=== PATIENT | male | born 1965 | race Caucasian/White ===

== ENCOUNTER 2019-12-13 00:11 | Outpatient (CLI) | payer MEDICARE, SELFPAY ==
[2019-12-13 18:06] LABS: SARS-CoV-2 RNA PCR Negative
== END 2019-12-13 00:12 | disposition home or self-care (01) ==
LOC: ANHCOVIDDT 00:11
PROVIDERS: PCP Family Medicine; Visit Provider Orthopaedic Surgery
DX: Z01.812 Encounter for preprocedural laboratory examination (principal); Z20.828 Contact with and (suspected) exposure to other viral communicable diseases
CPT/HCPCS: 87635; C9803; U0003

== ENCOUNTER 2019-12-13 08:39 | Outpatient (CLI) | payer MEDICARE, SELFPAY ==
--- NOTE | 2019-12-13 08:40 | ECG_ITS ---
Measurements Intervals [place] Rate: 55 P: 65 MT: 169 QRS: 53 QRSD: 89 T: 41 QT: 400 QTc: 386 Interpretive Statements SINUS BRADYCARDIA BASELINE ARTIFACT- I, II, III, AVR, AVL, AVF, V1-V6 BORDERLINE ECG Electronically Signed On 12-13-2019 9:20:11 CDT by Miguel Angel Omalley D.O.
== END 2019-12-13 08:40 | disposition home or self-care (01) ==
LOC: ANHSURGERY 08:40
PROVIDERS: PCP Family Medicine; Visit Provider Orthopaedic Surgery
DX: F17.210 Nicotine dependence, cigarettes, uncomplicated (principal); R94.31 Abnormal electrocardiogram [ECG] [EKG]
CPT/HCPCS: 93005

== ENCOUNTER 2019-12-15 05:35 | Day surgery (SDC) | payer MEDICARE, SELFPAY ==
[2019-12-15] VITALS (7 sets, daily range): BP systolic 110–139; BP diastolic 64–79; PULSE 43–58; RESP 8–18; TEMP 36.4–36.7; O2SAT 94–100
--- NOTE | 2019-12-15 07:09 | WPDHPUPDATE1 ---
History and Physical Update Update Date/Time: 12/15/19 07:09 History and Physical has been reviewed, including an updated exam of the patient. There are NO changes in the patient's condition. Risks, benefits, and alternatives have been discussed and questions answered. Patient agrees to proceed with procedure.
--- NOTE | 2019-12-15 08:22 | WPDANESEPPF ---
Anes - Initial Pre Proc Eval Procedure: Operation Date: 12/15/19 09:00 Proposed Procedures p Right Knee Arthroscopic Partial Medial Meniscectomy - Aldo Guerrero MD Date/Time: 12/15/19 08:22 Surgeon: Aldo Guerrero MD Pre Op Diagnosis: right knee medial meniscus tear Patient Data Age: 54 Gender: M Height: Weight: 97.52 kg Allergies Allergy/AdvReac Type Severity Reaction Status Date / Time cat dander Allergy Unknown Asthma Verified 12/15/19 08:21 Sulfa (Sulfonamide Allergy Unknown hives Verified 12/15/19 08:21 Antibiotics) Home Medications Medication Instructions Recorded Confirmed Type albuterol sulfate 90 mcg/actuation 2 puff INHALATION DIRECTED PRN 05/23/19 12/13/19 History aerosol inhaler gm alprazolam 1 mg tablet 1 mg PO TID tablet 05/23/19 12/13/19 History bupropion HCl 300 mg 24 hr tablet, 300 mg PO QAM 05/23/19 12/13/19 History extended release ergocalciferol (vitamin D2) 1,250 50,000 unit PO WEEKLY 05/23/19 12/13/19 History mcg (50,000 unit) capsule fluticasone propionate 50 2 spray NASAL DAILY PRN 05/23/19 12/13/19 History mcg/actuation nasal spray,suspension hydrocodone 10 mg-acetaminophen 1 tablet PO Q6H PRN 05/23/19 12/13/19 History 325 mg tablet tizanidine 2 mg capsule 2 mg PO TID PRN 05/23/19 12/13/19 History cod liver oil 1 cap PO DAILY 08/31/19 12/13/19 History Prevagen 1 cap PO DAILY 09/20/19 12/13/19 History melatonin 10 mg PO HS 09/20/19 12/13/19 History Patient hx anesthesia problems: none Family hx anesthesia problems: none PMFSH Past Medical History Medical History Chronic bronchitis with COPD (chronic obstructive pulmonary disease) Chronic obstructive pulmonary disease GERD (gastroesophageal reflux disease) Hypercholesterolemia Hyperglyceridemia Hypogonadism Internal carotid artery stenosis Lumbar spondylolysis Medial meniscus tear Non-alcoholic fatty liver disease Tendinosis of right shoulder Vitamin D deficiency Surgical History Surgical History History of appendectomy History of arthroscopy of knee History of facial surgery History of knee replacement History of lumbar surgery Hx of fusion of cervical spine Status post arthroscopy of hip Family History Family History Father Hypertension Family history of cardiovascular disease Family history of dementia Family history of headache disorder Family history of Alzheimer's disease Mother Hypertension Family history of cardiovascular disease Family history of headache disorder Family history of osteoporosis Grandparent Hypertension Family history of cardiovascular disease Cerebrovascular accident Other Family history of arthritis Social History Social History Smoking status: Former smoker Alcohol intake: current Gender identity (if verbalized by the patient): Male Anes - Eval Final PreProcedure Day of Procedure 12/15/19 08:22 Patient weight: obese Heart: regular rate and rhythm Lungs: decreased breath sounds Airway: Mallampati scale class II Neurological: alert and oriented Last oral intake: >/= 8 hours ASA classification: III Emergent: no Anesthetic plan: proceed Anesthesia type and monitoring: general LMA and standard monitoring Informed Consent: The patient's anesthetic plan and its attendant risks and benefits were discussed with the patient/family/POA. Questions were solicited and answers provided to the satisfaction of the patient/family/POA.
[2019-12-15] MEDS: LACTATED RINGERS 1,000 ML 30 ML IV CONT ×2 (08:25→09:58)
[2019-12-15] MEDS: ceFAZolin 2 GM/D5W 50 ML 2 GM/50 ML BAG IVPB (08:46)
[2019-12-15] MEDS: BUPIVACAINE/EPINEPHRINE 0.5% 10 ML VIAL 20 ML INFILTRATE (09:04)
--- NOTE | 2019-12-15 16:57 | PM.PROC ---
Procedure Note - Detailed Date of procedure: 12/15/19 Pre-op diagnosis: right knee medial meniscus tear Post-op diagnosis: same Procedure performed: Arthroscopic partial medial meniscectomy. Description of procedure: A large posterior horn meniscal fragment identified in the intercondylar notch. This was reduced and debrided. Minimal medial chondromalacia. Grade 2 at the patellofemoral joint. The lateral compartment was benign. Anesthesia: GETA Surgeon: Aldo Guerrero MD Estimated blood loss (mL): 5 Complications: None Condition: stable Findings: Procedure Details: The patient was identified and the surgical site confirmed and signed in the preoperative holding area. Antibiotics were started per protocol. She was brought to the operative room and transferred to the OR table. A general anesthetic was administered. Supine position with the operative lower extremity position in the leg garcia after placement of a well padded tourniquet. The leg support was lowered and the contralateral limb was supported with a soft bolster. The knee was prepped and draped in the usual sterile fashion. A time-out was performed. The portal sites were marked and infiltrated with 0.5% Marcaine 20 mL. The limb was exsanguinated and the tourniquet inflated to 300 mL Hg. Standard inferolateral and inferomedial portals were established. Inflow was obtained with the saline pump. The camera was introduced. Diagnostic inspection of the joint was accomplished. The meniscus was debrided with the arthroscopic shaver and punches until stable. The arthroscopic instruments were removed. The tourniquet released and wounds closed with subcutaneous 3-0 Monocryl absorbable suture. Steri strips and a sterile dressing were applied. A light elastic wrap was placed. The patient was extubated and brought to the recovery room in stable condition.
== END 2019-12-15 11:26 | disposition home or self-care (01) ==
PROVIDERS: PCP Family Medicine; Visit Provider Orthopaedic Surgery
PROC: (CPT 29870; principal; 2019-12-15 09:00)
DX: S83.241A Other tear of medial meniscus, current injury, right knee, initial encounter (principal); W19.XXXA Unspecified fall, initial encounter; M94.261 Chondromalacia, right knee; J44.9 Chronic obstructive pulmonary disease, unspecified; E78.00 Pure hypercholesterolemia, unspecified; K21.9 Gastro-esophageal reflux disease without esophagitis; K76.0 Fatty (change of) liver, not elsewhere classified; E55.9 Vitamin D deficiency, unspecified; E66.9 Obesity, unspecified; Z68.30 Body mass index [BMI] 30.0-30.9, adult; Z87.891 Personal history of nicotine dependence
CPT/HCPCS: 29881; 87635; 93005; A9270; C9803; J0690; J1100; J2250; J2405; J2704; J3010; J7120; U0003

== ENCOUNTER 2020-01-06 00:23 | Outpatient (CLI) | payer MEDICARE, SELFPAY ==
[2020-01-06 16:19] LABS: SARS-CoV-2 RNA PCR Negative
== END 2020-01-06 00:24 | disposition home or self-care (01) ==
LOC: ANHCOVIDDT 00:23
PROVIDERS: Anesthesiology; PCP Family Medicine; Visit Provider Orthopaedic Surgery
DX: Z01.818 Encounter for other preprocedural examination (principal); Z11.59 Encounter for screening for other viral diseases
CPT/HCPCS: 87635; C9803; U0003

== ENCOUNTER 2020-01-09 00:03 | Day surgery (SDC) | payer MEDICARE, SELFPAY ==
[2019-09-20 14:33] VITALS: BMI 27.0
[2019-12-27 10:26] VITALS: BMI 28.3
[2020-01-09] VITALS (8 sets, daily range): BP systolic 126–158; BP diastolic 76–88; PULSE 53–59; RESP 14–20; TEMP 36.1–37.2; O2SAT 94–100
--- NOTE | 2020-01-09 07:08 | WPDHPUPDATE1 ---
History and Physical Update Update Date/Time: 01/09/20 07:08 History and Physical has been reviewed, including an updated exam of the patient. There are NO changes in the patient's condition. Risks, benefits, and alternatives have been discussed and questions answered. Patient agrees to proceed with procedure.
[2020-01-09] MEDS: LACTATED RINGERS 1,000 ML 30 ML IV CONT ×2 (11:30→15:53)
--- NOTE | 2020-01-09 12:56 | WPDANESEPPF ---
Anes - Initial Pre Proc Eval Procedure: Operation Date: 01/09/20 13:00 Proposed Procedures p Right Shoulder Arthroscopic Subacromial Decompression, Possible Rotator Cuff Repair With Regeneten Collagen Implant, Proceed As Indicated - Aldo Guerrero MD Date/Time: 01/09/20 12:56 Surgeon: Aldo Guerrero MD Pre Op Diagnosis: Tendonitis Right Shoulder Patient Data Age: 54 Gender: M Height: 1.85 m Weight: 95.7 kg Last Vital Signs Temp 37.2 C 01/09/20 11:48 Pulse 59 L 01/09/20 11:48 Resp 20 01/09/20 11:48 BP 126/76 01/09/20 11:48 Pulse Ox 98 01/09/20 11:48 Allergies Allergy/AdvReac Type Severity Reaction Status Date / Time cat dander Allergy Unknown Asthma Verified 01/09/20 12:38 Sulfa (Sulfonamide Allergy Unknown hives Verified 01/09/20 12:38 Antibiotics) Home Medications Medication Instructions Recorded Confirmed Type albuterol sulfate 90 mcg/actuation 2 puff INHALATION DIRECTED PRN 05/23/19 01/09/20 History aerosol inhaler gm alprazolam 1 mg tablet 1 mg PO TID tablet 05/23/19 01/09/20 History bupropion HCl 300 mg 24 hr tablet, 300 mg PO QAM 05/23/19 01/09/20 History extended release ergocalciferol (vitamin D2) 1,250 50,000 unit PO WEEKLY 05/23/19 01/09/20 History mcg (50,000 unit) capsule fluticasone propionate 50 2 spray NASAL DAILY PRN 05/23/19 01/09/20 History mcg/actuation nasal spray,suspension hydrocodone 10 mg-acetaminophen 1 tablet PO Q6H PRN 05/23/19 01/09/20 History 325 mg tablet tizanidine 2 mg capsule 2 mg PO TID PRN 05/23/19 01/09/20 History cod liver oil 1 cap PO DAILY 08/31/19 01/09/20 History Prevagen 1 cap PO DAILY 09/20/19 01/09/20 History melatonin 10 mg PO HS 09/20/19 01/09/20 History Patient hx anesthesia problems: none Family hx anesthesia problems: none PMFSH Past Medical History Medical History (Updated 01/09/20 @ 12:57 by Kp Pennington DO) Chronic bronchitis with COPD (chronic obstructive pulmonary disease) Chronic obstructive pulmonary disease Chronic, continuous use of opioids norco 10 GERD (gastroesophageal reflux disease) Hypercholesterolemia Hyperglyceridemia Hypogonadism Internal carotid artery stenosis Lumbar spondylolysis Medial meniscus tear Non-alcoholic fatty liver disease Partial tear of right rotator cuff Presence of intrathecal pump dilaudid/clonidine/bupivacaine Tendinosis of right shoulder Vitamin D deficiency Surgical History Surgical History History of appendectomy History of arthroscopy of knee History of facial surgery History of knee replacement History of lumbar surgery Hx of fusion of cervical spine Status post arthroscopy of hip Social History Social History Smoking status: Former smoker Alcohol intake: current Gender identity (if verbalized by the patient): Male Anes - Eval Final PreProcedure Day of Procedure 01/09/20 12:56 Patient weight: overweight Heart: regular rate and rhythm Lungs: clear to auscultation and normal air movement Airway: Mallampati scale class II Neurological: alert and oriented Last oral intake: >/= 8 hours ASA classification: III Emergent: no Anesthetic plan: proceed Anesthesia type and monitoring: general ETT and standard monitoring Informed Consent: The patient's anesthetic plan and its attendant risks and benefits were discussed with the patient/family/POA. Questions were solicited and answers provided to the satisfaction of the patient/family/POA.
--- NOTE | 2020-01-09 12:58 | WPDANESPNB ---
Anes - Peripheral Nerve Block Date/Time: 01/09/20 12:58 I have discussed with the patient/family/POA the placement of a peripheral nerve block for post-operative pain management, including associated risks, benefits, complications, and side effects. Alternative methods of post-operative analgesia were detailed. Questions were solicited and answers provided to the satisfaction of the patient/family/POA. Time-Out: A pre-procedural Time-Out was completed immediately before starting the procedure and confirmed: Patient Identification, Site, Procedure, Patient Position and the Availability of Requisite Equipment. Clinical Indications: Acute post-operative pain management requested by the operative surgeon. Nerve Block Insertion Note Anes-nerve block: interscalene right Patient position: supine Skin prep: chlorhexidine Needle: 22 gauge, stimulating, insulated echogenic needle. Needle length: 50 mm Technique: ultrasound Injectate: bupivacaine 0.5% with epi 5 mcg/ml (30cc) Observations: tolerated well Complications: none Procedure start time:: 1317 Procedure end time:: 1320
[2020-01-09] MEDS: ceFAZolin 2 GM/D5W 50 ML 2 GM/50 ML BAG IVPB (13:38)
--- NOTE | 2020-01-10 11:32 | P.OP_ITS ---
Procedure Note - Detailed Date of procedure: 01/09/20 Pre-op diagnosis: Tendonitis Right Shoulder Post-op diagnosis: other (1. High-grade partial bursal side rotator cuff tear. 2. Subacromial impingement. 3. Posterior labral tear. ) Procedure performed: 1. Arthrosocopic rotator cuff repair. 2. Arthroscopic subacromial decompression. 3. Arthroscopic posterior labral debridement. Description of procedure: The posterior labrum had a significant degenerative type tear in the posterior inferior corner. This was debrided with the arthroscopic shaver and the radiofrequency probe. The cuff appeared normal on the articular side. The articular cartilage was otherwise normal. The bursal cuff had high-grade tear. Initially looked quite small and without retraction. There was delamination occurring. There was significant exposed footprint on the bursal side. The articular tissue remained intact and close to 50% thickness. A 2 tunnel repair was performed with an X-box technique. Anesthesia: [facility] Surgeon: Aldo Guerrero MD Estimated blood loss (mL): 20 Complications: None Disposition: PACU Findings: Preoperative antibiotics were given. An interscalene block was administered in the preoperative area. The patient was bought brought to the operating room. A general anesthetic was administered. The patient was carefully positioned in the beach chair position. The head and neck were carefully positioned. The non operative extremity was also carefully positioned. The shoulder was prepped and draped in the usual sterile fashion. Examination was performed. Standard posterior and anterior arthroscopic portals were established. Inflow achieved with the arthroscopic pump using saline and epinephrine. The glenohumeral joint was carefully inspected. The articular cartilage was normal. There was a significant degenerative tear of the posterior inferior labrum. There was fairly small. There was some instability of the labrum at the 7 o'clock position. This was treated with debridement. The camera and they shaver were switched and a better angle was obtained posteriorly. The radiofrequency probe was also used to seal and smoothed the unstable edge. The tear appeared quite anatomic and benign at the conclusion of the debridement. There was a mild synovitis and hyperemia. There did not appear to be any capsule contracture. The articular side of the rotator cuff appeared entirely normal. Biceps and superior labrum were also normal. Attention was turned to the subacromial space. The bursa was moderately thickened. There was also a thick band going anteriorly at the anterolateral acromion. This was felt to be consistent with the impingement. Bursal tissue at the supraspinatus initially looked fairly modestly frayed but after gentle probing it was clear that this was a large bursal side tear. No retraction with good tendon tissue. A modest acromioplasty was performed. The articular 50% of cuff remained healthy and viable. It was elected to repair the cuff with a 2 tunnel technique using the X box configuration. This compressed the lateral edge of the rotator cuff nicely onto the footprin. The tear configuration was carefully assessed. At this point, 2 tunnels were created at the rotator cuff. One anterior and 1 posterior. The ArthroTunneler technique was utilized. Three sutures were passed through each tunnel. All sutures were then passed through the cuff tissue. The sutures were tied arthroscopically. The arthroscopic instruments were removed. The wounds were closed with 3-0 Monocryl subcuticular suture and steri strips. There were no complications. A sling was applied and the patient brought to the recovery room.
== END 2020-01-09 18:10 | disposition home or self-care (01) ==
PROVIDERS: PCP Family Medicine; Visit Provider Orthopaedic Surgery
PROC: (CPT 29805; principal; 2020-01-09 13:00)
DX: M75.101 Unspecified rotator cuff tear or rupture of right shoulder, not specified as traumatic (principal); M75.81 Other shoulder lesions, right shoulder; M75.41 Impingement syndrome of right shoulder; G89.18 Other acute postprocedural pain; J44.9 Chronic obstructive pulmonary disease, unspecified; E78.00 Pure hypercholesterolemia, unspecified; E78.1 Pure hyperglyceridemia; M47.816 Spondylosis without myelopathy or radiculopathy, lumbar region; E55.9 Vitamin D deficiency, unspecified; Z79.891 Long term (current) use of opiate analgesic; Z87.891 Personal history of nicotine dependence
CPT/HCPCS: 29827; 29826; 64415; 87635; A4565; C9803; J0690; J1100; J2250; J2405; J2704; J2710; J3010; J7120; U0003

== ENCOUNTER 2020-09-24 08:41 | Outpatient (CLI) | payer MEDICARE, SELFPAY | END 2020-09-24 08:42 | disposition home or self-care (01) | LOC: ANHCOVIDVC 08:41 | PROVIDERS: PCP Family Medicine | DX: Z23 Encounter for immunization (principal) | CPT/HCPCS: 0001A; 91300 ==

== ENCOUNTER 2020-10-15 10:16 | Outpatient (CLI) | payer MEDICARE, SELFPAY | END 2020-10-15 10:17 | disposition home or self-care (01) | LOC: ANHCOVIDVC 10:17 | PROVIDERS: PCP Family Medicine | DX: Z23 Encounter for immunization (principal) | CPT/HCPCS: 0002A; 91300 ==

== ENCOUNTER 2021-04-07 10:40 | Emergency (ER) | payer MEDICARE, SELFPAY ==
[2021-04-07 10:50] VITALS: TEMP 36.7
[2021-04-07 11:00] VITALS: O2SAT 98
--- NOTE | 2021-04-07 11:08 | ED.SOB ---
HPI - SOB/Dyspnea General Chief Complaint: Back Pain/Injury Stated Complaint: Shortness of Breathe Time Seen by Provider: 04/07/21 11:08 Source: patient and RN notes reviewed Mode of arrival: ambulatory Limitations: no limitations History of Present Illness HPI Narrative: 55-year-old male presents with concern for shortness of breath, left-sided chest wall pain without injury. Reports he did work in the yard excessively over the weekend. Reports pain started yesterday. He reports a feeling of not being able to take a full deep breath on the left side. He denies coughing. Denies worsening pain with range of motion of the left arm, reports worsening pain with lying on the left side. He denies upper respiratory symptoms such as nasal congestion, rhinorrhea, sore throat, headache. Reports a history of rhabdomyolysis, back pain, back surgery, has a implanted pain pump. Uses a cane for mobility due to back pain and surgery. Patient was vaccinated for Covid. MD elicited complaint: shortness of breath Related Data Home Medications Medication Instructions Recorded Confirmed ergocalciferol (vitamin D2) 1,250 50,000 unit PO WEEKLY 05/23/19 03/06/21 mcg (50,000 unit) capsule fluticasone propionate 50 2 spray NASAL DAILY PRN 05/23/19 03/06/21 mcg/actuation nasal spray,suspension cod liver oil 1 cap PO DAILY 08/31/19 03/06/21 Prevagen 1 cap PO DAILY 09/20/19 03/06/21 melatonin 10 mg PO HS 09/20/19 03/06/21 albuterol sulfate 90 mcg/actuation 1 puff INHALATION Q4H PRN 03/06/21 03/06/21 aerosol inhaler aspirin 81 mg tablet,delayed 81 mg PO DAILY 03/06/21 03/06/21 release fluticasone 250 mcg-salmeterol 50 1 inh INHALATION BID PRN 03/06/21 03/06/21 mcg/dose blistr powdr for inhalation ginkgo biloba 120 mg tablet 120 mg PO DAILY 03/06/21 03/06/21 milk thistle 500 mg capsule 500 mg PO DAILY 03/06/21 03/06/21 omeprazole 20 mg tablet,delayed 20 mg PO DAILY 03/06/21 03/06/21 release vit C 50 mg-E 15 unit-zinc cit 4.5 2 tablet PO DAILY 03/06/21 03/06/21 mg-lutein 2.5 mg-zeaxan chew tablet Allergies Allergy/AdvReac Type Severity Reaction Status Date / Time cat dander Allergy Unknown Asthma Verified 04/07/21 11:26 Sulfa (Sulfonamide Allergy Unknown hives Verified 04/07/21 11:26 Antibiotics) Review of Systems Review of Systems: CONSTITUTIONAL: Denies malaise, chills, sweats, or fever. EYES: Denies visual changes, redness, or discharge. ENT: Denies rhinorrhea, congestion, sinus pain, otalgia or sore throat. CARDIOVASCULAR: Denies chest pain, palpitations, or edema. RESPIRATORY: Denies cough. Reports dyspnea, left chest wall pain. GASTROINTESTINAL: Denies abdominal pain, nausea, vomiting, diarrhea, bloody, or mucous stools. GENITOURINARY: Denies dysuria or hematuria. SKIN: Denies rash or itching, redness, warmth, swelling. MUSCULOSKELETAL: Reports left upper back pain, worsening when lying on the left side NEUROLOGIC: Denies numbness, weakness, or headache. All systems reviewed & are unremarkable except as noted in HPI and below PMFSH Past Medical History Medical History (Updated 04/07/21 @ 11:34 by Antonia Patel NP) Chronic bronchitis with COPD (chronic obstructive pulmonary disease) Chronic obstructive pulmonary disease Chronic pain Chronic, continuous use of opioids norco Family hx colonic polyps GERD (gastroesophageal reflux disease) Hypercholesterolemia Hyperglyceridemia Hypogonadism Internal carotid artery stenosis Lumbar spondylolysis Medial meniscus tear Non-alcoholic fatty liver disease Partial tear of right rotator cuff Presence of intrathecal pump dilaudid/clonidine/bupivacaine Tendinosis of right shoulder Vitamin D deficiency Surgical History Surgical History History of appendectomy History of arthroscopy of knee History of facial surgery History of knee replacement History of lumbar surgery Hx of fusion of cervical spi
[2021-04-07 11:15] VITALS: BP 147/86; PULSE 81; RESP 18
== END 2021-04-07 11:28 | disposition short-term general hospital (02) ==
PROVIDERS: Emergency Provider Nurse Practitioner; PCP Family Medicine
DX: R06.02 Shortness of breath (principal); Z79.82 Long term (current) use of aspirin
CPT/HCPCS: 99212; G0463

== ENCOUNTER 2022-08-13 01:39 | Day surgery (SDC) | payer MEDICARE, SELFPAY ==
[2022-07-31 14:09] VITALS: BMI 26.7
[2022-08-13 10:13] VITALS: BP 127/64; PULSE 53; RESP 17; TEMP 36.1; O2SAT 100; BMI 27.0
--- NOTE | 2022-08-13 10:18 | PM.HPGS ---
History of Present Illness History of Present Illness Consent: Risks, benefits, and alternatives have been discussed and questions answered. Patient agrees to proceed with procedure. Chief complaint: family history of colon polyps Narrative: Brennon Cohen is a 56 year old male Presents for screening colonoscopy. Patient's father has had colon polyps. Patient's previous colonoscopy 2014 was unremarkable. Patient reports that his current weight appetite and bowel movements are normal. He denies abdominal pain. He has had no bleeding. Review of Systems Review of Systems: Review of systems noncontributory. [facility] Past Medical History Medical History Chronic bronchitis with COPD (chronic obstructive pulmonary disease) Chronic obstructive pulmonary disease Chronic pain Chronic, continuous use of opioids norco Family hx colonic polyps GERD (gastroesophageal reflux disease) History of pneumothorax Hypercholesterolemia Hyperglyceridemia Hypogonadism Internal carotid artery stenosis Lumbar spondylolysis Medial meniscus tear Non-alcoholic fatty liver disease Partial tear of right rotator cuff Presence of intrathecal pump dilaudid/clonidine/bupivacaine Tendinosis of right shoulder Vitamin D deficiency Surgical History Surgical History History of appendectomy History of arthroscopy of knee History of facial surgery History of knee replacement History of lumbar surgery Hx of fusion of cervical spine Status post arthroscopy of hip Family History Family History Father Hypertension Family history of cardiovascular disease Family history of dementia Family history of headache disorder Family history of Alzheimer's disease Mother Hypertension Family history of cardiovascular disease Family history of headache disorder Family history of osteoporosis Grandparent Hypertension Family history of cardiovascular disease Cerebrovascular accident Other Family history of arthritis Social History Social History (Updated 03/04/22 @ 11:34 by SILVIA Forte) Smoking packs per day: 1 Smoking cigarettes per day: 20.0 Years smoked: 22 Smoking pack-years: 22.00 Smoking status: Former smoker Alcohol intake: current Alcohol use details: socially Substance use: never Substance use type: does not use Living arrangements: alone Gender identity (if verbalized by the patient): Male Spiritual care concerns: No Meds Home Medications and Allergies Home Medications Medication Instructions Recorded Confirmed Type ergocalciferol (vitamin D2) 1,250 50,000 unit PO WEEKLY 05/23/19 08/13/22 History mcg (50,000 unit) capsule (Vitamin D2) albuterol sulfate 90 mcg/actuation 1 puff inhalation Q4H PRN Wheezing 03/06/21 08/13/22 History aerosol inhaler (ProAir HFA) ginkgo biloba 120 mg tablet 120 mg PO DAILY 03/06/21 08/13/22 History milk thistle 500 mg capsule 500 mg PO DAILY 03/06/21 08/13/22 History omeprazole 20 mg tablet,delayed 20 mg PO DAILY 03/06/21 08/13/22 History release hydromorphone (PF) 2 mg/mL 2 mg subcut Q6H PRN Back Pain 04/07/21 08/13/22 History injection solution atorvastatin 10 mg tablet 10 mg PO QHS #90 tabs 11/06/21 08/13/22 Rx fluticasone fur. 100 mcg-umeclid 1 inh inhalation DAILY 11/06/21 08/13/22 History 62.5 mcg-vilant 25 mcg inhalat.powder (Trelegy Ellipta) bupropion HCl 300 mg 24 hr tablet, 300 mg PO QAM #90 tabs 01/29/22 08/13/22 Rx extended release (Wellbutrin XL) alprazolam 1 mg tablet (Xanax) 1 mg PO TID #90 tabs 02/26/22 08/13/22 Rx hydrocodone 10 mg-acetaminophen 1 tablet PO Q8H PRN pain #90 tabs 06/01/22 08/13/22 Rx 325 mg tablet lisinopril 20 mg tablet 20 mg PO DAILY #90 tabs 07/03/22 08/13/22 Rx tizanidine 4 mg tablet See Rx Instructions .Rou
[2022-08-13] MEDS: LACTATED RINGERS 1,000 ML 150 ML IV CONT (10:24)
--- NOTE | 2022-08-13 10:36 | WPDANESEPPF ---
Anes - Initial Pre Proc Eval Procedure: Operation Date: 08/13/22 11:00 Proposed Procedures p Colonoscopy - Yasir Stein MD Date/Time: 08/13/22 10:36 Surgeon: Yasir Stein MD Pre Op Diagnosis: family history of colon polyps Patient Data Age: 56 Gender: M Height: 1.85 m Weight: 92.9 kg Last Vital Signs Temp 97 F L 08/13/22 10:13 Pulse 53 L 08/13/22 10:13 Resp 17 08/13/22 10:13 BP 127/64 08/13/22 10:13 Pulse Ox 100 08/13/22 10:13 O2 Del Method Room Air 08/13/22 10:13 Allergies Allergy/AdvReac Type Severity Reaction Status Date / Time cat dander Allergy Unknown Asthma Verified 08/13/22 10:11 Sulfa (Sulfonamide Allergy Unknown hives Verified 08/13/22 10:11 Antibiotics) Home Medications Medication Instructions Recorded Confirmed Type ergocalciferol (vitamin D2) 1,250 50,000 unit PO WEEKLY 05/23/19 08/13/22 History mcg (50,000 unit) capsule (Vitamin D2) albuterol sulfate 90 mcg/actuation 1 puff inhalation Q4H PRN Wheezing 03/06/21 08/13/22 History aerosol inhaler (ProAir HFA) ginkgo biloba 120 mg tablet 120 mg PO DAILY 03/06/21 08/13/22 History milk thistle 500 mg capsule 500 mg PO DAILY 03/06/21 08/13/22 History omeprazole 20 mg tablet,delayed 20 mg PO DAILY 03/06/21 08/13/22 History release hydromorphone (PF) 2 mg/mL 2 mg subcut Q6H PRN Back Pain 04/07/21 08/13/22 History injection solution atorvastatin 10 mg tablet 10 mg PO QHS #90 tabs 11/06/21 08/13/22 Rx fluticasone fur. 100 mcg-umeclid 1 inh inhalation DAILY 11/06/21 08/13/22 History 62.5 mcg-vilant 25 mcg inhalat.powder (Trelegy Ellipta) bupropion HCl 300 mg 24 hr tablet, 300 mg PO QAM #90 tabs 01/29/22 08/13/22 Rx extended release (Wellbutrin XL) alprazolam 1 mg tablet (Xanax) 1 mg PO TID #90 tabs 02/26/22 08/13/22 Rx hydrocodone 10 mg-acetaminophen 1 tablet PO Q8H PRN pain #90 tabs 06/01/22 08/13/22 Rx 325 mg tablet lisinopril 20 mg tablet 20 mg PO DAILY #90 tabs 07/03/22 08/13/22 Rx tizanidine 4 mg tablet See Rx Instructions .Route 07/21/22 08/13/22 Rx .COMPLEX #90 tabs ciprofloxacin HCl 250 mg tablet 250 mg PO Q12H #14 tabs 07/29/22 08/13/22 Rx iron 65 mg PO DAILY 07/31/22 08/13/22 History Patient hx anesthesia problems: none Family hx anesthesia problems: none Results Review: All pre-operative results and documents have been reviewed as part of the pre-operative evaluation. FOR[facility]LY [facility] Past Medical History Medical History Chronic bronchitis with COPD (chronic obstructive pulmonary disease) Chronic obstructive pulmonary disease Chronic pain Chronic, continuous use of opioids norco 10/325 Family hx colonic polyps GERD (gastroesophageal reflux disease) History of pneumothorax Hypercholesterolemia Hyperglyceridemia Hypogonadism Internal carotid artery stenosis Lumbar spondylolysis Medial meniscus tear Non-alcoholic fatty liver disease Partial tear of right rotator cuff Presence of intrathecal pump dilaudid/clonidine/bupivacaine Tendinosis of right shoulder Vitamin D deficiency Surgical History Surgical History History of appendectomy History of arthroscopy of knee History of facial surgery History of knee replacement History of lumbar surgery Hx of fusion of cervical spine Status post arthroscopy of hip Family History Family History Father Hypertension Family history of cardiovascular disease Family history of dementia Family history of headache disorder Family history of Alzheimer's disease Mother Hypertension Family history of cardiovascular disease Family history of headache disorder Family history of osteoporosis Grandparent Hypertension Family history of cardiovascular disease Cerebrovascular accident Other Family history of arthritis Social History Social Hi
[2022-08-13 11:03] VITALS: BP 105/61; PULSE 50; RESP 18; O2SAT 100
[2022-08-13 11:13] VITALS: BP 122/72; PULSE 50; RESP 14; O2SAT 100
[2022-08-13 11:23] VITALS: BP 124/70; PULSE 50; RESP 16; O2SAT 100
== END 2022-08-13 11:28 | disposition home or self-care (01) ==
PROVIDERS: PCP Family Medicine; Visit Provider Internal Medicine Gastroenterology
PROC: 0DJD8ZZ Inspection of Lower Intestinal Tract, Via Natural or Artificial Opening Endoscopic (ICD-10-PCS; CPT 45378; principal; 2022-08-13 11:00)
DX: Z12.11 Encounter for screening for malignant neoplasm of colon (principal); K64.8 Other hemorrhoids; Z86.010 Personal history of colon polyps; Z83.71 Family history of colonic polyps; J44.9 Chronic obstructive pulmonary disease, unspecified; K75.81 Nonalcoholic steatohepatitis (NASH); K21.9 Gastro-esophageal reflux disease without esophagitis; G89.29 Other chronic pain; E78.00 Pure hypercholesterolemia, unspecified; E55.9 Vitamin D deficiency, unspecified; Z79.51 Long term (current) use of inhaled steroids; Z79.891 Long term (current) use of opiate analgesic; Z87.891 Personal history of nicotine dependence
CPT/HCPCS: G0105; J2704; J7120

== ENCOUNTER 2023-11-16 14:25 | Outpatient (CLI) | payer MEDICARE, SELFPAY ==
--- NOTE | ~2023-11-16 | XR_ITS ---
XR hip LT 2V w AP pelvis DATE: 11/16/2023 14:59 INDICATION: Left hip pain TECHNIQUE: AP pelvis. AP and lateral views of left hip COMPARISON: None FINDINGS: There is slight degenerative spurring of the left femoral head. Left hip joint space appear s relatively well preserved and symmetric with the right hip. No fracture, dislocation, avascular necrosis or bone destruction of the left hip. The pubic symphysis and sacral iliac joints are intact. No pelvic fracture or bone destruction. Moderately severe degenerative disease at L3-4. Status post posterior surgical fusion by pedicle screws and rods at L4-S1. Pain device overlies the right flank. IMPRESSION: Status post posterior surgical fusion at L4-S1 Moderately severe degenerative disease at L3-4 Mild left hip osteoarthritis Reviewed, dictated and finalized at location A.
== END 2023-11-16 14:26 | disposition home or self-care (01) ==
LOC: ANHIMG 14:31
PROVIDERS: PCP Family Medicine; Visit Provider Family Medicine
DX: M16.12 Unilateral primary osteoarthritis, left hip (principal); M51.36 Other intervertebral disc degeneration, lumbar region; Z98.1 Arthrodesis status
CPT/HCPCS: 73502